=== PATIENT | male | born 2000 | race Caucasian/White ===

== ENCOUNTER 2025-07-22 15:20 | Outpatient (CLI) | payer BC, OTHER, SELFPAY | END 2025-07-22 15:21 | disposition home or self-care (01) | PROVIDERS: PCP Family Medicine; Visit Provider Family Medicine | DX: K21.9 Gastro-esophageal reflux disease without esophagitis (principal); R53.83 Other fatigue | CPT/HCPCS: 80053; 82784; 84443; 86231; 86258; 86364; 86618 ==